=== PATIENT | male | born 1950 | race Caucasian/White ===

== ENCOUNTER 2023-01-26 14:00 | Outpatient (RCR) | payer MEDICARE, OTHER, SELFPAY | END 2023-05-27 23:59 | disposition home or self-care (01) | PROVIDERS: PCP Family Medicine; Visit Provider Family Medicine | DX: M79.641 Pain in right hand (principal); Z51.89 Encounter for other specified aftercare | CPT/HCPCS: 97035; 97110; 97140; 97165; 97535; X5282 ==

== ENCOUNTER 2024-06-23 09:30 | Outpatient (RCR) | payer MEDICARE, OTHER, SELFPAY ==
--- NOTE | 2024-05-26 11:42 | PT.OPEX ---
PT [place] Outpatient Eval PT [facility] Outpatient Eval Start: 05/25/24 16:14 Freq: Status: Active Protocol: Document 05/26/24 09:22 NLR (Rec: 05/26/24 11:34 NLR [id number]) E-signed By Sri Gomez DPT Physical Therapy Outpatient Evaluation Insurance Information Recert Due Date 08/24/24 Insurance Name Medicare B,Other; See Comments Insurance Information/Comments Medical Diagnosis M19.011 Primary OA Right Shoulder M19.012 Primary OA Left Shoulder Treating Diagnosis M25.511 Pain right shoulder M25.512 Pain left shoulder Imaging Report Information AP, Transscapular Y, and Grashey views of the left shoulder were obtained on [address] [facility]. These show glenohumeral joint space narrowing [id number]. There is a small inferior osteophyte off both sides of the joint, no proximal migration of the humeral head. Referring MD Alvaro Portillo MD ([place] [facility]? 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 L shoulder is worse than R. He has had RC injuries in the past and a L glenoid fracture in 2002. 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 In October he had Covid and was quite sick so was unable to do his regular workout for two months. Since that time he feels like he has lost a lot of strength of flexibility. He recently started working with a sap trainer at [employer] and is getting back into his fitness routine. He has also resumed his passion for gardening and notes the movement has improved his pain . Pain Comments Pain is sharp and movement related L>R. He sometimes has a background ache at night (1 -2/10). He is struggling with putting on a jacket or sweater and sometimes his will help him. Ibuprofen helps a lot. Pain use to wake him at night but he has adjusted his sleeping position to semi-sidelying 50/50 L to R and that has reduced waking up at night. 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 Gardening is more limited by his hands than his shoulders. He lost an adult son in the several months ago. Patient lives with his . Precautions Treatment Precautions/Contraindications L knee ACL/MCL/meniscus repair 20 years ago Therapy Limitations/Systems Review Not Limited Objective Other/Pertinent Objective HAND DOM: RIGHT ROM: R shoulder elevation 150 , L shoulder he can elevate to 150 also (greater with donte ) but has mid range sharp pain limiting speed of elevation. B elbows WFL. STRENGTH: R shoulder grossly 4 /5, L shoulder elevation grossly 3+/5, B serratus anterior 3/5 with notable scapular winging PALPATION: No specific rotator cuff or pec minor tenderness to palpation. POSTURE: R shoulder lower than left and retracted, B shoulder blades abducted and winging, B foot pronation, slight FHON. SPECIAL TESTS: Empty can - R, + L FLEXIBILITY: Hypoflexibility noted B pec minor, L>R lats FOOTWEAR: Wears hiking shoes for walking. Today wearing sandals. Assessment Assessment/Impression Patient is a very pleasant 74- year-old male who presents with year long history of L>R shoulder pain exacerbated by decreased fitness level when he was ill over the winter. 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 He is hoping to stave off surgery by working with his sap trainer and doing PT. Skilled intervention for goals as stated is appropriate . Primary Functional Limitations Difficulty lifting arms or internally rotating arm to put on jackets and sweaters, difficulty using his archery bow. Plan of Care Rehabilitation Potential Good Rehabilitation Potential Comments Patient is otherwise healthy and motivated to improve in order to return to prior level of function. Physical Therapy Goals 1. Patient will be independent with home exercise program as instructed, modified and progressed by physical therapist in order to be independently and actively participating in their rehabilitation and return to prior level of function. Goal to be achieved by 08/14/2024. 2. Patient will lift 8 # weight through at least 150 degrees of active shoulder flexion and abduction above head height safely and independently without compensation or significant increase in pain over 210 allowing for reaching and grasping objects from elevated surfaces to safely and independently allow functional activities such as lifting/ reaching to kitchen cabinets to cook, lifting/reaching to don/doff sweaters and jackets. Goal to be achieved by 2023. 3. Patient will demonstrate improved tolerance for movement with decreased pain and joint restriction to allow him to return to pre-injury fitness activities of choice such as archery without significant increase in pain greater than 2/10 demonstrating improvement in form and/or mechanics to allow patient to return to pre- onset level of function. Goal to be achieved by 08/14/2024. Coordination/Communication With Referral Source Treatment Plan/Direct Interventions Dry Needling,Electrical Stimulation,Manual Therapy, Neuromuscular Re-ed,Self-Care/ Home Management,Therapeutic Exercises Frequency/Duration 1X/week for up to 10 visits Patient Will Be Discharged From Therapy Completion of LTG(s),Skills Plateau,Independent w/HEP, Independently Progressing Evaluation Billing Untimed Code Treatment Minutes 20 PT Eval No Charge No Complexity Low Certification Information Initial Certification Date 05/26/24 Ending Certification Date 08/24/24 Provider Signature Required Yes Provider Signature Shows Agreement With POC & Medical Necessity Physician NPI Number Write NPI# Here Physician Comment/Change : Physician Signature & Date Requested Please Sign/Date Here
== END 2024-09-07 15:38 | disposition home or self-care (01) ==
PROVIDERS: PCP Family Medicine; Visit Provider Orthopaedic Surgery
DX: M19.011 Primary osteoarthritis, right shoulder (principal); M19.012 Primary osteoarthritis, left shoulder; Z51.89 Encounter for other specified aftercare
CPT/HCPCS: 97110; 97112; 97161

== ENCOUNTER 2025-04-24 09:00 | Outpatient (RCR) | payer MEDICARE, OTHER, SELFPAY | END 2025-05-30 14:35 | disposition home or self-care (01) | PROVIDERS: PCP Family Medicine; Visit Provider Family Medicine | DX: M25.512 Pain in left shoulder (principal); G89.29 Other chronic pain; M19.012 Primary osteoarthritis, left shoulder; Z51.89 Encounter for other specified aftercare | CPT/HCPCS: 97110; 97161; 97535 ==